=== PATIENT | female | born 1965 | race Caucasian/White ===

== ENCOUNTER → 2023-07-22 09:39 | Outpatient (REF) | payer BC, SELFPAY | LOC: WDC 09:39 | PROVIDERS: ATTENDING PHYSICIAN Family Medicine | DX: N64.4 Mastodynia (principal); Z80.3 Family history of malignant neoplasm of breast | CPT/HCPCS: 76642; 77061; 77065 ==

== ENCOUNTER → 2023-08-16 11:15 | Outpatient (REF) | payer BC, SELFPAY ==
[2023-08-16 20:47] LABS: FSH 63.9 mIU/ml
[2023-08-18 10:43] LABS: Estradiol, Serum 4.1 pg/mL; Estrogens, Total 18.4 pg/mL; Estrone 14.3 pg/mL
== END ==
LOC: RAD 11:15
PROVIDERS: ATTENDING PHYSICIAN Family Medicine
DX: N64.4 Mastodynia (principal)
CPT/HCPCS: 36415; 72040; 82671; 83001; 83002

== ENCOUNTER → 2023-09-13 14:37 | Outpatient (REF) | payer BC, SELFPAY | LOC: MRI 3T 14:37 | PROVIDERS: ATTENDING PHYSICIAN Family Medicine | DX: N64.4 Mastodynia (principal) | CPT/HCPCS: 77049; A9585 ==

== ENCOUNTER 2024-05-25 12:07 | Emergency (ER) | payer BC, SELFPAY ==
[2024-05-25 12:13] VITALS: BP 136/90
--- NOTE | 2024-05-25 12:55 | ED.GENMED ---
History of Present Illness
General
Chief Complaint: Chest Pain
Time Seen by Provider: 05/25/24 12:55
History of Present Illness
History of Present Illness:
TIME OF INITIAL ENCOUNTER: 1 PM
HPI: Patient presents with chest discomfort that started about 2 hours ago. She does use 1 or 2 fingers to show me where the pain is to a small area in the right side of the sternal border. Yesterday evening, she developed right proximal upper
extremity 'boring' type of discomfort. When she moves the upper extremity she has a little bit of worsening of the right upper extremity discomfort. This does not however affect her chest discomfort. She has had costochondritis type symptoms in
the past. She was concerned because her blood pressures in the 170s despite taking her normal 5 of amlodipine last night. She does not report any diaphoresis but is had some hot flashes that she frequently gets related to menopausal symptoms. She
has had no exertional symptoms over the last few weeks.
EXAM:
GENERAL: Well appearing in no distress
HEENT: Moist oral mucosa
CARDIOVASCULAR: No murmurs, normal heart rate, regular rhythm, No chest wall tenderness
PULMONARY: No respiratory distress, breath sounds are clear and equal
ABDOMEN: Soft with no peritoneal signs, no tenderness
NEUROLOGIC: Excellent strength all extremities, no coordination deficits
PSYCHIATRIC: Appropriate mental status, normal insight and judgement
EXTREMITIES: Nontender, no edema, moves all extremities equally
SKIN: No rash, no lesions
NUMBER AND COMPLEXITY OF PROBLEMS ADDRESSED AT THE ENCOUNTER
� Chronic conditions affecting care: High blood pressure, hyperlipidemia
� Acute Exacerbation and/or Progression of Chronic Illness: This is an acute problem
� Differential Diagnosis includes: Costochondritis, cervical radiculopathy, muscle strain, ACS unlikely given the normal EKG
AMOUNT AND/OR COMPLEXITY OF DATA TO BE REVIEWED AND ANALYZED
� I performed an independent evaluation of and my interpretation is:
EKG: Sinus 74, normal axis, no acute ST abnormality
CT:
X-rays: I personally reviewed chest x-ray and see no acute abnormality
Laboratory Studies: CBC and chemistries including initial troponin unremarkable
Other:
� Review of other/old records: The patient had colonoscopy in 2022 and was seen here with facial nerve palsy in 2021
� Clinical information was obtained by an independent historian: I spoke to the at bedside
� Prescriptions/Medications Considered but not given: Patient declines to take anything for discomfort
� Further testing considered but not performed:
RISK OF COMPLICATIONS AND/OR MORBIDITY OR MORTALITY OF PATIENT MANAGEMENT
� Social determinants of health affecting care: Lives at home
� Discussion with other providers:
� Escalation of care including admission/observation vs risk of discharge considered: EKG is unremarkable. She has minimal discomfort currently
ANY OTHER UPDATES:
3:20 PM: I reassessed patient. She appears very comfortable. She had declined any analgesia. 2 cardiac blood test have been negative. Recommend that she also follows up with cardiology as an outpatient as she has never been anybody
before�contact information for Dr. Bradshaw was given.
Past History
Past History
ED Past Medical History: CVA, HTN and Hypercholesterolemia
Social History
Tobacco: Non-smoker
Phy Exam
Physical Exam
Physical Exam:
See HPI
Scores
Heart Score for Chest Pain Patients
STEMI patient?: Not applicable
Course
Orders/Labs/Results
Orders:
Orders
05/25/24 12:08
Electrocardiogram (*1) Urgent
Reason for Study: Chest Pain
EKG- Treatment ONCE
05/25/24 12:16
CXR2 [CR Chest - 2 Views ] Urgent
Comment:
Reason For Exam: chest pain
05/25/24 12:24
Complete Blood Count/With Diff Urgent
Comprehensive Metabolic Panel Urgent
Troponin I Urgent
05/25/24 14:26
Troponin I Urgent
05/25/24 12:24
05/25/24 12:24
Vital Signs
Initial and Last Documented VS:
Initial Vital Signs
Temp Pulse Resp BP Pulse Ox
36.7 C 86 16 136/90 98
05/25/24 12:13 05/25/24 12:13 05/25/24 12:13 05/25/24 12:13 05/25/24 12:13
Last Documented Vital Signs
Temp Pulse Resp BP Pulse Ox
36.7 C 71 18 126/76 98
05/25/24 12:13 05/25/24 14:15 05/25/24 14:15 05/25/24 14:00 05/25/24 14:15
*Critical Care Note
Total Time (30-74mins, 75-104mins- exclusive of procedures): Not Applicable
ED Attending Note
-
Portions of this chart may have been created with voice recognition software.� Occasional wrong word or��sound alike� substitutions may have occurred due to the inherent limitations of voice recognition software.
Discharge Plan
Departure
Patient Disposition: Home (Routine Discharge)
Date of Disposition: 05/25/24
Time of Disposition: 15:21
Patient with high blood pressure during this ER visit?: Yes
Discharge Problem:
Chest pain
Instructions: Chest Pain CBC Follow Up, BLOOD PRESSURE
Prescriptions:
No Action
atorvastatin 20 MG tablet
20 mg PO HS
amlodipine 5 MG tablet
5 mg PO DAILY
Patient Comments:
patient took 2 tabs (10mg) this morning
valacyclovir 500 MG tablet
500 mg PO BIDPRN PRN (Reason: cold sores)
aspirin 81 MG tablet,delayed release (DR/EC)
162 mg PO HS
Patient Comments:
patient took extra dose this morning
sertraline 25 MG tablet
12.5 mg PO HS
zinc gluconate 50 MG tablet
50 mg PO DAILY
Patient Comments:
started taking after covid
cholecalciferol (vitamin D3) 2,000 UNITS tablet
10,000 units PO DAILY
Patient Comments:
started taking after covid
ferrous sulfate [FeroSul] 325 MG tablet
325 mg PO HS 0RF
docusate sodium 100 MG capsule
100 mg PO BIDPRN PRN (Reason: No BM > 24 hours) 0RF
prednisone 10 MG tablet
10 mg PO DAILY Qty: 10 0RF
Rx Instructions:
Taper: 40mg daily x 1 day, 30mg daily x 1 day, 20mg daily x 1 day, 10mg daily x 1 day
Referrals:
Jayy Burrell MD [Active] - Next open appointment
Amanda Mcadams MD [Family Provider] -
Activity Restrictions/Additional Instructions:
The cause of your symptoms is unclear. Basic blood work is normal and including 2 cardiac sets of blood work have been negative for heart attack. EKG is normal. However, should you are in your 50s, have high blood pressure and high cholesterol, I
recommend that you follow-up with a er registrar such as Dr. Márquezbody from their office should be calling you for follow-up.
Interventions
Interventions:
*Risk Screen - Suicide Last Done: 05/25/24 12:13
*General Assessment Last Done: 05/25/24 13:06
*Neglect/Abuse Screening Last Done: 05/25/24 12:13
ED- Fall Risk Assessment Last Done: 05/25/24 13:06
*ED COVID-19 Vaccine History Last Done: 05/25/24 13:06
ED- Cardiac Assessment Last Done: 05/25/24 13:06
Discharge Date and Time
Print Language: SWEDISH
[2024-05-25 13:06] VITALS: BMI 25.1
--- NOTE | 2024-05-25 13:06 | EDRN ---
Dr. Conner currently at the [facility] bedside
[2024-05-25 13:16] LABS: % Basophils 0.7 % (0-2); % Eosinophils 2.9 % (0-6); % Immature Granulocytes 0.1 % (0-0.5); % Lymphocytes 32.5 % (20.5-51.1); % Monocytes 7.4 % (1.7-9.3); % Neutrophils 56.4 % (42.2-75.2); Absolute Basophils 0.1 10^3/uL (0-0.2); Absolute Eosinophils 0.2 10^3/uL (0-0.7); Absolute Lymphocytes 2.3 10^3/uL (1.2-3.4); Absolute Monocytes 0.5 10^3/uL (0.1-0.6); Hematocrit 40.9 % (37.0-47.0); Hemoglobin 13.6 g/dL (12.0-16.0); Mean Corp Hgb Conc. 33.3 g/dL (33.0-37.0); Mean Corpuscular Hgb 30.2 pg (27.0-31.0); Mean Corpuscular Volume 90.7 fL (81.0-99.0); Mean Platelet Volume 9.9 fL (7.4-10.4); Nucleated Red Blood Cells % 0 %; Platelet Count 306 10^3/uL (130-400); Red Blood Cell Count 4.51 10^6/uL (4.20-5.40); Red Cell Dist. Width 12.8 % (11.5-14.5)
[2024-05-25 13:36] LABS: AST (SGOT) 32 U/L (14-36); Albumin 4.8 g/dl (3.5-5.0); Alkaline Phosphatase 115 U/L (38-126); Blood Urea Nitrogen 14 mg/dl (7-17); Calcium 9.6 mg/dl (8.4-10.2); Carbon Dioxide 29 mmol/L (22-30); Chloride 100 mmol/L (98-107); Estimated Creatinine Clearance 85 ml/min; Glucose 92 mg/dl (70-99); Potassium 3.8 mmol/L (3.5-5.1); Sodium 138 mmol/L (135-145); Total Bilirubin 0.5 mg/dl (0.2-1.3); Total Protein 7.6 g/dl (6.3-8.2); eGFR > 60.00
[2024-05-25 13:37] LABS: ALT (SGPT) 26 U/L (0-35)
[2024-05-25 13:43] VITALS: BP 133/74
[2024-05-25 13:43] LABS: Troponin I < 0.012 ng/ml
[2024-05-25 14:00] VITALS: BP 126/76
[2024-05-25 15:00] VITALS: BP 126/78
[2024-05-25 15:20] LABS: Troponin I < 0.012 ng/ml
== END 2024-05-25 15:40 | disposition home or self-care (01) ==
LOC: EMR 12:07
PROVIDERS: Emergency Medicine; EMERGENCY PHYSICIAN Emergency Medicine; FAMILY PHYSICIAN Family Medicine
DX: R07.89 Other chest pain (principal); I10 Essential (primary) hypertension; E78.00 Pure hypercholesterolemia, unspecified; Z86.73 Personal history of transient ischemic attack (TIA), and cerebral infarction without residual deficits
CPT/HCPCS: 99283; 71046; 80053; 84484; 85025; 93005

== ENCOUNTER → 2024-06-07 14:26 | Outpatient (REF) | payer BC, SELFPAY | LOC: RCS 14:26 | PROVIDERS: ATTENDING PHYSICIAN Family Medicine | DX: R07.89 Other chest pain (principal) | CPT/HCPCS: 93017; 93350 ==

== ENCOUNTER → 2024-06-26 20:21 | Outpatient (REF) | payer BC, SELFPAY | LOC: MRI 3T 20:21 | PROVIDERS: ATTENDING PHYSICIAN Family Medicine | DX: R07.89 Other chest pain (principal); R20.2 Paresthesia of skin; N64.4 Mastodynia | CPT/HCPCS: 72141 ==